=== PATIENT | female | born 2000 | race Caucasian/White ===

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

== ENCOUNTER 2021-06-30 14:42 | Emergency (ER) | payer SELFPAY ==
[~2021-06-30] VITALS: Ht 160 cm; Wt 88.0 kg
[~2021-06-30 14:42] MED LIST: CYCL10TA19 PO
[2021-06-30 15:10] VITALS: BP 114/77
== END 2021-06-30 21:00 | disposition left against medical advice (07) ==
LOC: ER 14:42
DX: O46.91 Antepartum hemorrhage, unspecified, first trimester (principal); Z3A.00 Weeks of gestation of pregnancy not specified; Z53.21 Procedure and treatment not carried out due to patient leaving prior to being seen by health care provider